=== PATIENT | female | born 1970 | race Caucasian/White ===

== ENCOUNTER 2016-05-11 19:26 | Emergency (ER) | payer MEDICARE, MEDICAID | END 2016-05-11 21:19 | disposition home or self-care (01) | LOC: ER 19:26 | DX: S43.421A Sprain of right rotator cuff capsule, initial encounter (principal); W01.0XXA Fall on same level from slipping, tripping and stumbling without subsequent striking against object, initial encounter; Y92.019 Unspecified place in single-family (private) house as the place of occurrence of the external cause; M19.011 Primary osteoarthritis, right shoulder ==